=== PATIENT | male | born 1990 | race American Indian/Alaskan Native ===

== ENCOUNTER 2017-04-02 16:38 | Outpatient (CLI) | payer OTHER ==
--- NOTE | 2017-04-02 21:02 | XRay Report ---
FINAL REPORT EXAM: XR CHEST ROUTINE 2V HISTORY: Hypertension TECHNIQUE: PA and lateral views of the chest. PRIORS: None FINDINGS: The lungs and pleural spaces are clear. No focal consolidation, pleural effusion or pneumothorax is identified. The mediastinum and souleymane are normal. The aorta is normal. The heart is normal in size. The osseous structures are unremarkable. IMPRESSION: No evidence of acute cardiopulmonary disease.
== END 2017-04-02 16:39 | disposition home or self-care (01) ==
LOC: XRAY 16:38
PROVIDERS: ATTEND Physician Assistant Medical
DX: I10 Essential (primary) hypertension (principal); I51.7 Cardiomegaly
CPT/HCPCS: 71046